=== PATIENT | female | born 1980 | race Caucasian/White ===

== ENCOUNTER 2021-01-10 18:03 | Emergency (ER) | payer OTHER, BC ==
[~2021-01-10 18:03] MED LIST: CORGARD20 MG PO; FEOSOL325 MG PO; INDERAL TAB 1010 MG PO; SYNTHROID25 MCG PO; VITAMIN D250000 UNIT PO
[2021-01-10 18:46] LABS: RED BLOOD COUNT 3.21 M/UL (4.00-5.10); WHITE BLOOD COUNT 4.1 K/UL (4.5-11.0)
[2021-01-10 19:04] LABS: BUN/CREATININE RATIO 12 (0-10)
[2021-01-10] MEDS ORDERED: AUGMENTIN 875-1 EACH PO (20:25)
[2021-01-10] MEDS ORDERED: ZOFRAN4 MG PO (20:25)
== END 2021-01-10 21:15 | disposition home or self-care (01) ==
LOC: ER1 18:03
PROVIDERS: Physician Assistant
DX: K52.9 Noninfective gastroenteritis and colitis, unspecified (principal); D64.9 Anemia, unspecified; K74.60 Unspecified cirrhosis of liver; D61.818 Other pancytopenia; F17.210 Nicotine dependence, cigarettes, uncomplicated
CPT/HCPCS: 80053; 81001; 82140; 83540; 83550; 83615; 83690; 84703; 85025; 85610; 86850; 86900; 86901; 87086; 96374; 96375; 99284; J2270; J2405; Q9967

== ENCOUNTER 2021-01-16 02:04 | Emergency (ER) | payer BC ==
[~2021-01-16 02:04] MED LIST changes: +AUGMENTIN 875-1 EACH PO; +ZOFRAN4 MG PO
== END 2021-01-16 04:20 | disposition left against medical advice (07) ==
LOC: ER1 02:04
DX: Z53.21 Procedure and treatment not carried out due to patient leaving prior to being seen by health care provider (principal)

== ENCOUNTER 2021-05-03 07:42 | Emergency (ER) | payer OTHER ==
[2021-05-03 08:16] LABS: RED BLOOD COUNT 2.99 M/UL (4.00-5.10); WHITE BLOOD COUNT 3.1 K/UL (4.5-11.0)
[2021-05-03 08:27] LABS: HEMOGLOBIN 6.5 gm/dl (12.3-15.3)
[2021-05-03 08:50] LABS: BUN/CREATININE RATIO 13 (0-10)
[2021-05-03 13:19] LABS: HEMOGLOBIN 6.7 gm/dl (12.3-15.3)
[2021-05-03 17:08] LABS: HEMOGLOBIN 7.9 gm/dl (12.3-15.3)
[2021-05-03] MEDS ORDERED: FERROUS SULFAT325 MG PO (17:23)
[2021-06-14] MEDS ORDERED: HYDROCHLOROTHIA25 MG PO (06:19)
== END 2021-05-03 17:30 | disposition home or self-care (01) ==
LOC: ER1 07:42
PROVIDERS: Family Medicine
DX: D50.9 Iron deficiency anemia, unspecified (principal); D69.6 Thrombocytopenia, unspecified; D72.819 Decreased white blood cell count, unspecified; K74.60 Unspecified cirrhosis of liver; E87.6 Hypokalemia; E03.9 Hypothyroidism, unspecified; Z91.14 Patient's other noncompliance with medication regimen; F17.200 Nicotine dependence, unspecified, uncomplicated
CPT/HCPCS: 36430; 80053; 82550; 82553; 83735; 83874; 84439; 84443; 84484; 85014; 85018; 85025; 85610; 86850; 86900; 86901; 86920; 93005; 99285; P9016

== ENCOUNTER 2021-05-27 12:06 | Emergency (ER) | payer OTHER ==
[~2021-05-27 12:06] MED LIST changes: +FERROUS SULFAT325 MG PO
[2021-05-27 12:50] LABS: HEMOGLOBIN 8.6 gm/dl (12.3-15.3); RED BLOOD COUNT 3.67 M/UL (4.00-5.10); WHITE BLOOD COUNT 6.1 K/UL (4.5-11.0)
[2021-05-27 13:45] LABS: BUN/CREATININE RATIO 12 (0-10)
[2021-05-27] MEDS ORDERED: K-DUR TAB 10 M10 MEQ PO (19:22)
[2021-05-27] MEDS ORDERED: OMNICEF 300 MG300 MG PO (19:22)
[2021-05-27] MEDS ORDERED: PROTONIX40 MG PO (19:22)
[2021-06-14] MEDS ORDERED: HYDROCHLOROTHIA25 MG PO (06:19)
== END 2021-05-27 19:58 | disposition home or self-care (01) ==
LOC: ER1 12:06
DX: N39.0 Urinary tract infection, site not specified (principal); R12 Heartburn; Z20.822 Contact with and (suspected) exposure to COVID-19
CPT/HCPCS: 0240U; 71045; 80053; 81001; 82550; 82553; 83605; 83615; 83690; 83735; 83874; 84132; 84484; 84703; 85025; 85379; 86140; 87086; 93005; 96374; 96375; 99284; C9113; J0696; J1885; J2405; Q9967

== ENCOUNTER → 2021-06-14 | Day surgery (SDC) | payer OTHER ==
[~2021-06-14] MED LIST changes: +HYDROCHLOROTHIA25 MG PO; +K-DUR TAB 10 M10 MEQ PO; +OMNICEF 300 MG300 MG PO; +PROTONIX40 MG PO
== END | disposition home or self-care (01) ==
LOC: OR 05:59
DX: K31.811 Angiodysplasia of stomach and duodenum with bleeding (principal); I86.4 Gastric varices; K70.31 Alcoholic cirrhosis of liver with ascites; I85.10 Secondary esophageal varices without bleeding; K76.6 Portal hypertension; E03.9 Hypothyroidism, unspecified; D50.0 Iron deficiency anemia secondary to blood loss (chronic); F41.9 Anxiety disorder, unspecified; E66.9 Obesity, unspecified; Z20.822 Contact with and (suspected) exposure to COVID-19; F17.210 Nicotine dependence, cigarettes, uncomplicated
CPT/HCPCS: 36415; 84703; J2704; J7040

== ENCOUNTER 2021-09-30 22:50 | Emergency (ER) | payer OTHER ==
[2021-10-01 00:04] LABS: RED BLOOD COUNT 2.62 M/UL (4.00-5.10); WHITE BLOOD COUNT 2.4 K/UL (4.5-11.0)
[2021-10-01 00:10] LABS: HEMOGLOBIN 5.8 gm/dl (12.3-15.3)
[2021-10-01 00:25] LABS: BUN/CREATININE RATIO 12 (0-10)
== END 2021-10-01 08:10 | disposition home or self-care (01) ==
LOC: ER1 22:50
PROVIDERS: Physician Assistant
DX: K74.60 Unspecified cirrhosis of liver (principal); D64.9 Anemia, unspecified; I10 Essential (primary) hypertension; F17.210 Nicotine dependence, cigarettes, uncomplicated
CPT/HCPCS: 36430; 80053; 80307; 82150; 83605; 83690; 83735; 85025; 85610; 85730; 86850; 86860; 86870; 86880; 86900; 86901; 86902; 86905; 86920; 86922; 86927; 99284; G0480; J7030; P9016; P9017; Q9967

== ENCOUNTER → 2021-10-10 | Outpatient (CLI) | payer BC, OTHER ==
[2021-10-10 11:11] LABS: HEMOGLOBIN 8.4 gm/dl (12.3-15.3); RED BLOOD COUNT 3.57 M/UL (4.00-5.10); WHITE BLOOD COUNT 2.7 K/UL (4.5-11.0)
[2021-10-11 08:14] LABS: ALPHA-1-ANTITRYPSIN, SERUM 125 mg/dL (100-188)
[2021-10-11 09:14] LABS: HBSAG SCREEN Negative (Negative); HEP A AB, IGM Negative (Negative); HEP B CORE AB, IGM Negative (Negative); HEP C VIRUS AB 0.2 (0.0-0.9)
[2021-10-11 14:14] LABS: MITOCHONDRIAL (M2) ANTIBODY <20.0 Units (0.0-20.0)
== END ==
LOC: OPSV 09:54
PROVIDERS: Internal Medicine Gastroenterology
DX: K70.31 Alcoholic cirrhosis of liver with ascites (principal)
CPT/HCPCS: 36415; 80074; 80076; 82103; 82728; 85027; 86038

== ENCOUNTER → 2021-12-07 | Outpatient (CLI) | payer BC, OTHER ==
[2021-12-07 10:33] LABS: HEMOGLOBIN 7.2 gm/dl (12.3-15.3)
== END ==
LOC: LAB 10:02
PROVIDERS: Internal Medicine Hematology & Oncology
DX: D64.9 Anemia, unspecified (principal)
CPT/HCPCS: 85014; 85018; 86850; 86900; 86901; 86902; 86920; 86922; J7050; P9016

== ENCOUNTER 2022-06-12 08:03 | Inpatient (IN) | payer OTHER ==
[~2022-06-12] VITALS: Ht 165.1 cm; Wt 88.5 kg
[2022-06-12 10:15] LABS: HEMOGLOBIN 10.8 gm/dl (12.3-15.3); RED BLOOD COUNT 3.3 M/UL (4.00-5.10); WHITE BLOOD COUNT 3.8 K/UL (4.5-11.0)
[2022-06-12 10:41] LABS: BUN/CREATININE RATIO 24 (0-10)
[2022-06-12] MEDS ORDERED: FUROSEMIDE40 MG PO (17:34)
[2022-06-12] MEDS ORDERED: NADOLOL20 MG PO (17:34)
[2022-06-12] MEDS ORDERED: SPIRONOLACTONE25 MG PO (17:35)
--- NOTE | 2022-06-13 03:05 | NUR ---
PATIENT WAS BROUGHT TO FLOOR DURING DAYSHIFT, PART 1 COMPLETED BY MYSELF, PART 2 COMPLETED BY ARIELLA PRADO RN. TRIED TO ADMINISTER PATIENTS PM MEDCIATIONS BUT SHE REFUSED ALL OF THEM UNTIL SHE COULD TALK TO THE DOCTOR THE NEXT DAY. SHORTLY AFTER PATIENTS CAME TO STAY WITH HER AND HE PERSUADE HER TO TAKE TO THE MEDICATIONS. PATIENT AGREED TO TAKE THE MEDICATIONS THAT WERE PRESCRIBED TO HER FOR TONIGHT WHICH RESULTED IN EDITING THE MEDICATIONS TO "GIVEN" STATUS. HOUSE FENG WAS MADE AWARE OF SITUATION. PATIENT ALSO REFUSED TO ALLOW TECH TO DO SECOND SET OF VITALS BUT WAS ABLE TO PERSUADE HER TO DO THOSE WELL. PATIENT SEEMS TO BE SLIGHTLY PARANOID AND CONFUSED AT TIMES. STAYED AT PATIENTS BEDSIDE. WILL CONTINUE TO MONITOR. NO DISTRESS NOTED.
[2022-06-13 08:49] LABS: HEMOGLOBIN 10.4 gm/dl (12.3-15.3); RED BLOOD COUNT 3.15 M/UL (4.00-5.10); WHITE BLOOD COUNT 4.1 K/UL (4.5-11.0)
[2022-06-13 09:14] LABS: BUN/CREATININE RATIO 16 (0-10)
[2022-06-14 06:00] LABS: HEMOGLOBIN 10.1 gm/dl (12.3-15.3); RED BLOOD COUNT 3.05 M/UL (4.00-5.10); WHITE BLOOD COUNT 3.2 K/UL (4.5-11.0)
[2022-06-14 06:55] LABS: BUN/CREATININE RATIO 16 (0-10)
[2022-06-14] MEDS ORDERED: CHRONULAC20 GM/30 M PO (09:09)
[2022-06-14] MEDS ORDERED: PROTONIX 40 MG40 M1 PO (09:09)
[2022-06-14] MEDS ORDERED: XIFAXAN 550 MG550 MG PO (09:09)
[2022-06-14] MEDS ORDERED: SYNTHROID50 MCG PO (09:44)
== END 2022-06-14 10:28 | disposition home or self-care (01) | DRG 433 ==
LOC: ER1 08:03 → CDU 16:12 → MED SURG 4 16:12 → CDU 18:00 → MED SURG 4 19:17
PROVIDERS: Family Medicine; Physician Assistant; ADMIT Internal Medicine
DX: K70.40 Alcoholic hepatic failure without coma (principal); D61.818 Other pancytopenia; I85.00 Esophageal varices without bleeding; Z20.822 Contact with and (suspected) exposure to COVID-19; K70.30 Alcoholic cirrhosis of liver without ascites; E83.42 Hypomagnesemia; E03.9 Hypothyroidism, unspecified; E66.9 Obesity, unspecified; F10.10 Alcohol abuse, uncomplicated; Z87.891 Personal history of nicotine dependence; Z68.32 Body mass index [BMI] 32.0-32.9, adult
CPT/HCPCS: 0240U; 36415; 70450; 80053; 80307; 81001; 82140; 82550; 82553; 83605; 83735; 84443; 84484; 85025; 85610; 99285; G0480; J0696